=== PATIENT | female | born 1955 | race Two or more races ===

== ENCOUNTER 2017-11-22 05:47 | Emergency (ER) | payer OTHER ==
[~2017-11-22] VITALS: Ht 160 cm; Wt 89.8 kg
[~2017-11-22 05:47] MED LIST: AMOX1TAB12 PO; BISOPROLOL-HCTZ1 TA2; FIORICET PO
== END 2017-11-22 21:55 | disposition home or self-care (01) ==
LOC: ER 05:47
DX: I10 Essential (primary) hypertension (principal); R51 Headache

== ENCOUNTER 2018-07-16 08:30 | Outpatient (CLI) | payer OTHER | END 2018-07-16 08:43 | disposition home or self-care (01) | LOC: LAB 08:30 | DX: M25.562 Pain in left knee (principal); Z00.00 Encounter for general adult medical examination without abnormal findings; I10 Essential (primary) hypertension ==

== ENCOUNTER 2018-11-24 05:40 | Day surgery (SDC) | payer OTHER | END 2018-11-24 09:15 | disposition home or self-care (01) | LOC: AMB-ENDOS 05:40 | DX: K29.50 Unspecified chronic gastritis without bleeding (principal) ==

== ENCOUNTER 2020-04-15 07:05 | Outpatient (CLI) | payer OTHER | END 2020-04-15 15:00 | disposition home or self-care (01) | LOC: LAB 07:05 | PROVIDERS: ATTEND Preventive Medicine Occupational Medicine | DX: R03.0 Elevated blood-pressure reading, without diagnosis of hypertension (principal) ==

== ENCOUNTER → 2020-05-28 | Emergency (ER) | payer OTHER ==
[~2020-05-28] VITALS: Ht 160 cm; Wt 90.7 kg
[~2020-05-28] MED LIST changes: +ATACAND16 MG PO; +ECOTRIN81 MG PO
== END | disposition home or self-care (01) ==
LOC: ER 14:41 → CPU-OBS 15:27 → ER 15:27
DX: R07.89 Other chest pain (principal); Z03.818 Encounter for observation for suspected exposure to other biological agents ruled out
CPT/HCPCS: G0378; G0379; 93005

== ENCOUNTER 2020-07-07 13:31 | Outpatient (CLI) | payer OTHER | END 2020-07-07 13:34 | disposition home or self-care (01) | LOC: LAB 13:31 | PROVIDERS: ATTEND Internal Medicine Cardiovascular Disease | DX: E07.89 Other specified disorders of thyroid (principal) ==

== ENCOUNTER 2020-08-06 14:03 | Outpatient (CLI) | payer OTHER | END 2020-08-06 14:20 | disposition home or self-care (01) | LOC: SONOGRAMA 14:03 | PROVIDERS: ATTEND Internal Medicine Cardiovascular Disease | DX: M51.36 Other intervertebral disc degeneration, lumbar region (principal) | CPT/HCPCS: 72148 ==

== ENCOUNTER 2021-02-24 06:59 | Outpatient (CLI) | payer OTHER | END 2021-02-24 07:05 | disposition home or self-care (01) | LOC: LAB 06:59 | PROVIDERS: ATTEND Obstetrics & Gynecology | DX: N95.8 Other specified menopausal and perimenopausal disorders (principal); R19.09 Other intra-abdominal and pelvic swelling, mass and lump; R97.8 Other abnormal tumor markers; Z12.11 Encounter for screening for malignant neoplasm of colon; E11.9 Type 2 diabetes mellitus without complications ==

== ENCOUNTER 2021-02-25 06:37 | Outpatient (CLI) | payer OTHER | END 2021-02-25 06:54 | disposition home or self-care (01) | LOC: LAB 06:37 | PROVIDERS: ATTEND Obstetrics & Gynecology | DX: N95.8 Other specified menopausal and perimenopausal disorders (principal); R19.09 Other intra-abdominal and pelvic swelling, mass and lump; R97.8 Other abnormal tumor markers; Z12.11 Encounter for screening for malignant neoplasm of colon ==

== ENCOUNTER 2021-03-27 09:00 | Outpatient (CLI) | payer OTHER | END 2021-03-27 09:15 | disposition home or self-care (01) | LOC: PPH VACUNA 09:00 | PROVIDERS: ATTEND Emergency Medicine Pediatric Emergency Medicine | DX: Z23 Encounter for immunization (principal) ==

== ENCOUNTER 2021-04-03 09:53 | Outpatient (CLI) | payer OTHER | END 2021-04-03 09:58 | disposition home or self-care (01) | LOC: LAB 09:53 | PROVIDERS: ATTEND Emergency Medicine Pediatric Emergency Medicine | DX: U07.1 COVID-19 (principal) ==

== ENCOUNTER 2021-04-06 15:00 | Outpatient (CLI) | payer OTHER | END 2021-04-06 16:53 | disposition home or self-care (01) | LOC: ASH CLINIC 15:00 | PROVIDERS: ATTEND Emergency Medicine | DX: Z23 Encounter for immunization (principal); U07.1 COVID-19 ==

== ENCOUNTER 2021-05-15 08:00 | Outpatient (CLI) | payer OTHER | END 2021-05-15 08:30 | disposition home or self-care (01) | LOC: PPH VACUNA 08:00 | PROVIDERS: ATTEND Emergency Medicine Pediatric Emergency Medicine | DX: Z23 Encounter for immunization (principal) ==

== ENCOUNTER 2021-06-09 13:49 | Outpatient (CLI) | payer OTHER | END 2021-06-09 14:03 | disposition home or self-care (01) | LOC: MAMO-SONO 13:49 | PROVIDERS: ATTEND Obstetrics & Gynecology | DX: N60.11 Diffuse cystic mastopathy of right breast (principal); N60.12 Diffuse cystic mastopathy of left breast; Z12.31 Encounter for screening mammogram for malignant neoplasm of breast ==

== ENCOUNTER 2021-08-13 06:38 | Outpatient (CLI) | payer OTHER | END 2021-08-13 06:47 | disposition home or self-care (01) | LOC: LAB 06:38 | DX: R53.81 Other malaise (principal) ==

== ENCOUNTER 2021-10-23 08:00 | Outpatient (CLI) | payer OTHER | END 2021-10-23 08:30 | disposition home or self-care (01) | LOC: PPH VACUNA 08:00 | PROVIDERS: ATTEND Emergency Medicine Pediatric Emergency Medicine | DX: Z23 Encounter for immunization (principal) ==

== ENCOUNTER 2021-11-02 09:24 | Outpatient (CLI) | payer OTHER | END 2021-11-02 15:57 | disposition home or self-care (01) | LOC: LAB 09:24 | DX: U07.1 COVID-19 (principal) ==

== ENCOUNTER 2022-03-17 08:00 | Outpatient (CLI) | payer OTHER | END 2022-03-17 08:05 | disposition home or self-care (01) | LOC: PPH VACUNA 08:00 | PROVIDERS: ATTEND Emergency Medicine Pediatric Emergency Medicine | DX: Z23 Encounter for immunization (principal) ==

== ENCOUNTER 2022-05-23 08:03 | Emergency (ER) | payer OTHER ==
[~2022-05-23] VITALS: Ht 160 cm; Wt 95.3 kg
[2022-05-23] MEDS ORDERED: OMEPRAZOLE-BIC1 EAC1 PO (08:27)
[2022-05-23] MEDS ORDERED: TENORMIN25 MG PO (08:27)
== END 2022-05-23 14:36 | disposition home or self-care (01) ==
LOC: ER 08:03
DX: I10 Essential (primary) hypertension (principal)

== ENCOUNTER 2022-07-15 11:45 | Outpatient (CLI) | payer OTHER ==
[~2022-07-15 11:45] MED LIST changes: +OMEPRAZOLE-BIC1 EAC1 PO; +TENORMIN25 MG PO
== END 2022-07-15 12:00 | disposition home or self-care (01) ==
LOC: PPH VACUNA 11:45
PROVIDERS: ATTEND Emergency Medicine Pediatric Emergency Medicine
DX: Z23 Encounter for immunization (principal)

== ENCOUNTER 2022-08-10 11:15 | Outpatient (CLI) | payer OTHER | END 2022-08-10 11:25 | disposition home or self-care (01) | LOC: LAB 11:15 | PROVIDERS: ATTEND General Practice | DX: R21 Rash and other nonspecific skin eruption (principal) ==

== ENCOUNTER 2022-08-20 15:38 | Outpatient (CLI) | payer OTHER | END 2022-08-20 15:42 | disposition home or self-care (01) | LOC: LAB 15:38 | DX: B19.10 Unspecified viral hepatitis B without hepatic coma (principal) ==